=== PATIENT | male | born 1945 | race Caucasian/White ===

== ENCOUNTER 2017-12-07 15:50 | Inpatient (IN) | payer OTHER ==
[~2017-12-07 15:50] MED LIST: ETOMIDATE 20 MG INJ; SUCCINYLCHOLINE CHLORIDE 100 MG/5 ML SYG IV
[2017-12-07] MEDS: CEFEPIME 2GM/50 ML (PMX) 50 ML IVPB ×2 (16:41→17:00)
[2017-12-07] MEDS: ACETAMINOPHEN 650 MG SUPP PR (16:41)
[2017-12-07 16:49] LABS: ABNORMAL IP MESSAGE 1; HEMATOCRIT 59.6 % (42.0-52.0); MEAN CORPUSCULAR HEMOGLOBIN 29.9 pg (29.0-33.0); MEAN CORPUSCULAR HGB CONC 31.9 g/dl (32.0-37.0); MEAN CORPUSCULAR VOLUME 93.9 fl (82.0-101.0); MEAN PLATELET VOLUME 10.6 fl (7.4-10.4); NUCLEATED RED BLOOD CELLS% 0.1 /100WBC (0.0-0.0); PLATELET COUNT 115 10^3/UL (140-415); POSITIVE DIFF @See below; RED BLOOD COUNT 6.35 10^6/ul (4.70-6.10); RED CELL DISTRIBUTION WIDTH 18.9 % (11.5-14.5)
[2017-12-07 16:49] LABS: WHITE BLOOD COUNT 25.4 10^3/ul (4.8-10.8)
[2017-12-07 16:58] LABS: ADD MAN DIFF? YES
[2017-12-07] MEDS: SODIUM CHLORIDE 0.9% 1L BAG IV* (17:00)
[2017-12-07 17:06] LABS: ALANINE AMINOTRANSFERASE 83 IU/L (13-69); ALBUMIN 4.1 g/dl (3.3-4.9); ALKALINE PHOSPHATASE 123 IU/L (42-121); ANION GAP 20 (8-16); ASPARTATE AMINO TRANSFERASE 134 IU/L (15-46); BILIRUBIN,INDIRECT 0.7 mg/dl (0-1.1); BILIRUBIN,TOTAL 0.7 mg/dl (0.2-1.3); CALCIUM 9.2 mg/dl (8.4-10.2); CARBON DIOXIDE 22 mmol/L (21-31); CHLORIDE 123 mmol/L (97-110); CREATININE 5.92 mg/dl (0.61-1.24); GLUCOSE 213 mg/dl (70-220); POTASSIUM 4.7 mmol/L (3.5-5.1); SODIUM 160 mmol/L (135-144); TOTAL PROTEIN 8.2 g/dl (6.1-8.1)
[2017-12-07 17:08] LABS: LACTIC ACID 5.3 mmol/L (0.5-2.0)
[2017-12-07 17:10] LABS: INR 1.47; PARTIAL THROMBOPLASTIN TIME 39.5 Sec (25.0-35.0); PROTIME 18.1 Sec (11.9-14.9); PT RATIO 1.4
[2017-12-07] MEDS: HYDROmorphONE 1 MG/ML SYG IV (17:13)
[2017-12-07] MEDS ORDERED: PROPOFOL 100 ML (17:13)
[2017-12-07 17:14] LABS: BLOOD UREA NITROGEN 115 mg/dl (7-20)
[2017-12-07 17:17] LABS: TROPONIN-I 0.069 ng/ml (0.000-0.120)
[2017-12-07] MEDS: SUCCINYLCHOLINE CHLORIDE 100 MG/5 ML SYG IV (17:30)
[2017-12-07] MEDS: ETOMIDATE 20 MG INJ IV (17:30)
[2017-12-07] MEDS: VANCOMYCIN 1 GM (PMX) 250 ML IVPB (17:31)
[2017-12-07] MEDS: IPRATROPIUM (NEB) 0.5 MG/2.5 ML AMP HHN (17:34)
[2017-12-07] MEDS: LEVALBUTEROL (NEB) 1.25 MG/0.5 ML AMP HHN (17:34)
[2017-12-07 17:48] LABS: BAND NEUTROPHILS % (M) 4 % (0-4); LYMPHOCYTES #M 2.5 10^3/ul (0.8-2.9); LYMPHOCYTES % (M) 10 % (15-51); MONOCYTE #M 2.5 10^3/ul (0.3-0.9); MONOCYTES % (M) 10 % (0-11); MYELOCYTES #M 0.2 10^3/ul (0.0-0.0); MYELOCYTES % (M) 1 % (0-0); PLATELET ESTIMATE DECREASED; SEG NEUT #M 19.3 10^3/ul (1.6-7.5); SEGMENTED NEUTROPHILS (M) % 75 % (39-77); SMUDGE%M 4 % (0-0)
[2017-12-07 18:12] LABS: AADO2 Arterial 594.3 mmHg (7.0-24.0); Allen Test ACCEPTAB; Arterial Base Excess -11.1 mmol/L (-3.0-3); Arterial Blood Gas Oxygen Sat 92.2 mmHG (95.0-98.0); Arterial COHb 0.5 % (0.0-3.0); Arterial Fraction of Oxyhgb 91.6 % (93.0-99.0); Arterial HCO3 15.8 mmol/L (22.0-26.0); Arterial MetHb 0.1 % (0.0-1.5); Arterial Total Hemglobin 15.6 g/dl (12.0-18.0); Arterial pCO2 39.2 mmhg (35-45); MODE VENT - AC; Site Right Radial
[2017-12-07] MEDS ORDERED: DOCUSATE SODIUM 100 MG CAP PO (18:30)
[2017-12-07] MEDS ORDERED: ACETAMINOPHEN 325 MG TAB PO (18:30)
[2017-12-07] MEDS ORDERED: HYDROCODONE/APAP (5/325) TAB PO (18:30)
[2017-12-07] MEDS ORDERED: hydrALAzine 20 MG INJ IV (18:30)
[2017-12-07] MEDS ORDERED: ONDANSETRON 4 MG INJ IV (18:30)
[2017-12-07] MEDS ORDERED: ALBUTEROL/IPRATROPIUM (NEB) 3 ML AMP HHN (18:30)
[2017-12-07] MEDS ORDERED: NACL 0.9% 3 ML SYG IV (18:30)
[2017-12-07] MEDS ORDERED: VANCOMYCIN IV PER PHARMACY XX (18:30)
[2017-12-07] MEDS ORDERED: NITROGLYCERIN (SL) 0.4 MG TAB SL (18:30)
[2017-12-07] MEDS: SOD CHLORIDE 0.45% 1,000 ML IV (18:30)
[2017-12-07] MEDS ORDERED: morphine 2 MG INJ IV (18:30)
[2017-12-07] MEDS ORDERED: MAGNESIUM HYDROXIDE 30ML CUP PO (18:30)
[2017-12-07] MEDS ORDERED: NA PHOSPHATE/BIPHOS 133 ML ENEMA PR (18:30)
[2017-12-07] MEDS ORDERED: NORepinephrine 8MG/250 ML (PMX 250 ML IV (18:51)
[2017-12-07] MEDS: PROPOFOL 100 ML IV ×2 (18:56→23:25)
[2017-12-07 19:12] LABS: LACTIC ACID 5.4 mmol/L (0.5-2.0)
[2017-12-07 19:24] LABS: FREE T4 (FREE THYROXINE) 1.11 ng/dl (0.78-2.44)
[2017-12-07] MEDS: DEXTROSE 5% 1,000 ML IV (19:27)
[2017-12-07 20:00] LABS: OSMOLALITY 379 mOsm/kg (280-295)
[2017-12-07 20:09] LABS: ADD UMIC YES; UR AMORPHOUS CRYSTAL FEW /HPF (NONE SEEN); UR ASCORBIC ACID NEGATIVE (NEGATIVE); UR BACTERIA MODERATE /HPF (NONE SEEN); UR BILIRUBIN (Dip) NEGATIVE (NEGATIVE); UR BLOOD (Dip) 3+ mg/dL (NEGATIVE); UR CLARITY CLOUDY (CLEAR); UR COLOR AMBER (YELLOW); UR GLUCOSE (Dip) NEGATIVE (NEGATIVE); UR KETONES (Dip) NEGATIVE (NEGATIVE); UR LEUKOCYTE ESTERASE (Dip) 1+ Leu/ul (NEGATIVE); UR MUCUS MANY /HPF (NONE SEEN); UR NITRITE (Dip) NEGATIVE (NEGATIVE); UR RBC > 182 /HPF (0-5); UR SPECIFIC GRAVITY (Dip) 1.017 (1.003-1.030); UR TOTAL PROTEIN (Dip) 2+ mg/dl (NEGATIVE); UR UROBILINOGEN (Dip) NEGATIVE (NEGATIVE); UR WBC 63 /HPF (0-5)
[2017-12-07 20:18] LABS: HEMOGLOBIN A1C 6.2 % (0-5.9)
[2017-12-07 20:22] LABS: CREATININE,URINE RANDOM 293.03 mg/dl (20-370)
[2017-12-07 20:22] LABS: SODIUM,URINE RANDOM 17 mmol/L (30-90)
[2017-12-07 20:30] LABS: OSMOLALITY,URINE 450 mOsm/kg (250-1200)
[2017-12-07 20:34] LABS: CREATININE,URINE RANDOM 296.24 mg/dl (20-370); PROTEIN/CREAT RATIO 0.64 RATIO
[2017-12-07 20:57] LABS: LACTIC ACID 2.8 mmol/L (0.5-2.0)
[2017-12-07] MEDS: VANCOMYCIN 750 MG in SOD CHLORIDE 0.9% 150 ML IVPB (21:05)
[2017-12-07 23:21] LABS: LACTIC ACID 2.8 mmol/L (0.5-2.0)
[2017-12-08 03:02] LABS: LACTIC ACID 2.8 mmol/L (0.5-2.0)
[2017-12-08] MEDS: SOD CHLORIDE 0.45% 1,000 ML IV (03:15)
[2017-12-08] MEDS: DEXTROSE 5% 1,000 ML IV (03:30)
[2017-12-08] MEDS: ACETAMINOPHEN 650 MG SUPP PR (03:39)
[2017-12-08] MEDS: PROPOFOL 100 ML IV (04:00)
[2017-12-08 05:50] LABS: WHITE BLOOD COUNT 15.4 10^3/ul (4.8-10.8)
[2017-12-08 05:50] LABS: ABNORMAL IP MESSAGE 1; HEMATOCRIT 48.8 % (42.0-52.0); HEMOGLOBIN 15.2 g/dl (14.0-18.0); MEAN CORPUSCULAR HGB CONC 31.1 g/dl (32.0-37.0); MEAN CORPUSCULAR VOLUME 96.4 fl (82.0-101.0); MEAN PLATELET VOLUME 11.3 fl (7.4-10.4); NUCLEATED RED BLOOD CELLS% 0.1 /100WBC (0.0-0.0); PLATELET COUNT 75 10^3/UL (140-415); POSITIVE DIFF @See below; RED BLOOD COUNT 5.06 10^6/ul (4.70-6.10); RED CELL DISTRIBUTION WIDTH 17.9 % (11.5-14.5)
[2017-12-08 06:09] LABS: AADO2 Arterial 519.4 mmHg (7.0-24.0); Arterial Base Excess -9.5 mmol/L (-3.0-3); Arterial Blood Gas Oxygen Sat 98.4 mmHG (95.0-98.0); Arterial COHb 0.3 % (0.0-3.0); Arterial Fraction of Oxyhgb 97.9 % (93.0-99.0); Arterial HCO3 16.4 mmol/L (22.0-26.0); Arterial MetHb 0.2 % (0.0-1.5); Arterial Total Hemglobin 15.6 g/dl (12.0-18.0); Arterial pCO2 36.3 mmhg (35-45); Blood Gas Mean Airway Pressure 12; MODE VENT - AC; Site LB
[2017-12-08 06:20] LABS: CHOLESTEROL 98 mg/dl (100-200)
[2017-12-08 06:20] LABS: CHOL/HDL RATIO 6.5 RATIO; HDL CHOLESTEROL 15 mg/dl (31-75); LDL CHOLESTEROL,CALCULATED 42 mg/dl; TRIGLYCERIDES 204 mg/dl (0-149)
[2017-12-08 06:40] LABS: THYROID STIMULATING HORMONE 0.407 MIU/L (0.465-4.680)
[2017-12-08 06:47] LABS: ADD MAN DIFF? YES
[2017-12-08 07:01] LABS: MAGNESIUM 2.9 mg/dl (1.7-2.5)
[2017-12-08 07:01] LABS: LACTIC ACID 2.6 mmol/L (0.5-2.0)
[2017-12-08] MEDS: PANTOPRAZOLE 40 MG INJ IV (07:26)
[2017-12-08 07:34] LABS: ALANINE AMINOTRANSFERASE 111 IU/L (13-69); ALBUMIN 2.8 g/dl (3.3-4.9); ALBUMIN/GLOBULIN RATIO 0.93; ALKALINE PHOSPHATASE 82 IU/L (42-121); ANION GAP 14 (8-16); ASPARTATE AMINO TRANSFERASE 214 IU/L (15-46); BILIRUBIN,INDIRECT 0.1 mg/dl (0-1.1); BILIRUBIN,TOTAL 0.1 mg/dl (0.2-1.3); CALCIUM 7.5 mg/dl (8.4-10.2); CARBON DIOXIDE 19 mmol/L (21-31); CHLORIDE 127 mmol/L (97-110); CREATININE 6.35 mg/dl (0.61-1.24); GLUCOSE 235 mg/dl (70-220); POTASSIUM 4.9 mmol/L (3.5-5.1); SODIUM 155 mmol/L (135-144); TOTAL PROTEIN 5.8 g/dl (6.1-8.1)
[2017-12-08 07:44] LABS: BLOOD UREA NITROGEN 134 mg/dl (7-20)
[2017-12-08 08:01] LABS: ANISOCYTOSIS 2+ (0-0); BAND NEUTROPHILS #M 5.8 10^3/ul (0.0-0.6); BAND NEUTROPHILS % (M) 38 % (0-4); LYMPHOCYTES % (M) 20 % (15-51); METAMYELOCYTES #M 0.1 10^3/ul (0.0-0.0); METAMYELOCYTES %M 1 % (0-0); MICROCYTOSIS 1+ (0-0); MONOCYTE #M 0.7 10^3/ul (0.3-0.9); MONOCYTES % (M) 5 % (0-11); PLATELET ESTIMATE DECREASED; POIKILOCYTOSIS 3+ (0-0); POLYCHROMASIA 3+ (0-0); RBC MORPHOLOGY COMMENT @See below; REACTIVE LYMPHOCYTES #M 0.3 10^3/ul (0.0-0.0); REACTIVE LYMPHOCYTES% (M) 2 % (0-0); SEG NEUT #M 6.1 10^3/ul (1.6-7.5); SEGMENTED NEUTROPHILS (M) % 34 % (39-77); SMUDGE%M 30 % (0-0); WBC MORPHOLOGY COMMENT @See below
[2017-12-08 09:15] LABS: HEMOGLOBIN A1C 5.8 % (0-5.9)
[2017-12-08 11:16] LABS: LACTIC ACID 2.7 mmol/L (0.5-2.0)
[2017-12-08] MEDS: SODIUM BICARBONATE (IV ADD) 150 MEQ in DEXTROSE 5% 850 ML IV (13:14)
[2017-12-08] MEDS: CLINDAMYCIN 600 MG/D5W (PMX) 50 ML IVPB ×2 (14:10→22:50)
[2017-12-08 14:26] LABS: LACTIC ACID 2.3 mmol/L (0.5-2.0)
[2017-12-08] MEDS ORDERED: D5W-0.45 NACL + KCL 10 MEQ 1,000 ML IV (17:30)
[2017-12-08] MEDS: CEFEPIME 2GM/50 ML (PMX) 50 ML IVPB (18:05)
[2017-12-08] MEDS: POTASSIUM CHLORIDE 10 MEQ in DEXTROSE 5%-0.225% NACL 1,000 ML IV (18:29)
[2017-12-08] MEDS: DEXTROSE 5%-0.225% NACL 1,000 ML IV (21:56)
[2017-12-08] MEDS ORDERED: DEXTROSE 50% 50 ML SYRINGE IV ×2 (22:00)
[2017-12-08] MEDS ORDERED: GLUCOSE GEL 15 GRAM TUBE PO ×2 (22:00)
[2017-12-08] MEDS ORDERED: GLUCAGON 1 MG INJ IM (22:00)
[2017-12-08] MEDS ORDERED: GLUCOSE GEL 15 GRAM TUBE BUCCAL (22:00)
[2017-12-09] MEDS: INSULIN ASPART [NOVOLOG] 3 ML PEN SC ×6 (00:34→20:55)
[2017-12-09] MEDS: PROPOFOL 100 ML IV ×3 (00:36→19:56)
[2017-12-09 05:28] LABS: ADD MAN DIFF? NO
[2017-12-09 05:37] LABS: WHITE BLOOD COUNT 17.9 10^3/ul (4.8-10.8)
[2017-12-09 05:37] LABS: ABNORMAL IP MESSAGE 1; BASOPHILS % 0.2 % (0.0-2.0); EOSINOPHILS % 0.1 % (0.0-7.0); HEMATOCRIT 39.7 % (42.0-52.0); HEMOGLOBIN 12.7 g/dl (14.0-18.0); LYMPHOCYTES # 1.1 10^3/ul (0.8-2.9); LYMPHOCYTES % 6.4 % (15.0-51.0); MEAN CORPUSCULAR VOLUME 93.6 fl (82.0-101.0); MEAN PLATELET VOLUME 11.4 fl (7.4-10.4); MONOCYTE # 1.1 10^3/ul (0.3-0.9); NEUTROPHIL # 15.5 10^3/ul (1.6-7.5); NEUTROPHILS % 86.6 % (39.0-77.0); PLATELET COUNT 66 10^3/UL (140-415); POSITIVE DIFF @See below; RED BLOOD COUNT 4.24 10^6/ul (4.70-6.10); RED CELL DISTRIBUTION WIDTH 17.9 % (11.5-14.5)
[2017-12-09] MEDS: DEXTROSE 5%-0.225% NACL 1,000 ML IV ×3 (05:47→21:45)
[2017-12-09] MEDS: PANTOPRAZOLE 40 MG INJ IV (05:50)
[2017-12-09] MEDS: CLINDAMYCIN 600 MG/D5W (PMX) 50 ML IVPB ×3 (05:50→21:45)
[2017-12-09 06:03] LABS: LACTIC ACID 1.9 mmol/L (0.5-2.0)
[2017-12-09 06:08] LABS: ANION GAP 15 (8-16); CALCIUM 7.2 mg/dl (8.4-10.2); CARBON DIOXIDE 19 mmol/L (21-31); CHLORIDE 118 mmol/L (97-110); CREATININE 6.29 mg/dl (0.61-1.24); GLUCOSE 210 mg/dl (70-220); POTASSIUM 4.2 mmol/L (3.5-5.1); SODIUM 148 mmol/L (135-144)
[2017-12-09 06:10] LABS: MAGNESIUM 2.5 mg/dl (1.7-2.5)
[2017-12-09 06:10] LABS: PHOSPHORUS 6.5 mg/dl (2.5-4.9)
[2017-12-09 06:59] LABS: BLOOD UREA NITROGEN 141 mg/dl (7-20)
[2017-12-09 07:27] LABS: ANISOCYTOSIS 2+ (0-0); BAND NEUTROPHILS #M 3.9 10^3/ul (0.0-0.6); BAND NEUTROPHILS % (M) 22 % (0-4); BURR CELLS 3+ (0-0); LYMPHOCYTES #M 1.4 10^3/ul (0.8-2.9); LYMPHOCYTES % (M) 8 % (15-51); MICROCYTOSIS 1+ (0-0); MONOCYTE #M 1.4 10^3/ul (0.3-0.9); MONOCYTES % (M) 8 % (0-11); PLATELET ESTIMATE SIG DECREASED; POIKILOCYTOSIS 3+ (0-0); POLYCHROMASIA 2+ (0-0); REACTIVE LYMPHOCYTES #M 0.1 10^3/ul (0.0-0.0); REACTIVE LYMPHOCYTES% (M) 1 % (0-0); SEG NEUT #M 11.6 10^3/ul (1.6-7.5); SEGMENTED NEUTROPHILS (M) % 61 % (39-77); SMUDGE%M 4 % (0-0)
[2017-12-09 08:29] LABS: AADO2 Arterial 171.6 mmHg (7.0-24.0); Allen Test ACCEPTAB; Arterial Base Excess -7.1 mmol/L (-3.0-3); Arterial Blood Gas Oxygen Sat 93.6 mmHG (95.0-98.0); Arterial COHb 0.9 % (0.0-3.0); Arterial Fraction of Oxyhgb 92.7 % (93.0-99.0); Arterial HCO3 17.9 mmol/L (22.0-26.0); Arterial MetHb 0.1 % (0.0-1.5); Arterial Total Hemglobin 13.4 g/dl (12.0-18.0); Arterial pCO2 34.5 mmhg (35-45); MODE VENT - AC; Site Right Radial
[2017-12-09] MEDS: NA BICARBONATE 650 MG TAB PO ×2 (12:36→20:44)
[2017-12-09] MEDS: CALCIUM ACETATE 667 MG CAP PO ×2 (12:36→17:02)
[2017-12-09] MEDS: HALOPERIDOL 5 MG INJ IV (13:29)
[2017-12-09 14:54] LABS: ANION GAP 17 (8-16); CALCIUM 7.3 mg/dl (8.4-10.2); CARBON DIOXIDE 20 mmol/L (21-31); CHLORIDE 114 mmol/L (97-110); CREATININE 6.78 mg/dl (0.61-1.24); GLUCOSE 203 mg/dl (70-220); POTASSIUM 3.7 mmol/L (3.5-5.1); SODIUM 147 mmol/L (135-144)
[2017-12-09 15:08] LABS: BLOOD UREA NITROGEN 133 mg/dl (7-20)
[2017-12-09] MEDS: FENTAnyl (DRIP) 1000 mcg/100mL 100 ML IV (15:51)
[2017-12-09] MEDS: CEFEPIME 2GM/50 ML (PMX) 50 ML IVPB (16:01)
[2017-12-09] MEDS: INSULIN GLARGINE [LANTus] (100 UNITS/ML) SYG SC (20:55)
[2017-12-10] MEDS: LORAZEPAM 2 MG INJ IV (01:27)
[2017-12-10] MEDS: INSULIN ASPART [NOVOLOG] 3 ML PEN SC ×6 (01:33→20:22)
[2017-12-10] MEDS: BALSAM PERU/CASTOR OIL 60 GM TUBE TOP ×3 (02:02→20:24)
[2017-12-10] MEDS: COLLAGENASE 5 GM (UD JAR) TOP ×2 (02:02→09:00)
[2017-12-10 04:56] LABS: ADD MAN DIFF? NO
[2017-12-10 04:57] LABS: WHITE BLOOD COUNT 15.1 10^3/ul (4.8-10.8)
[2017-12-10 04:57] LABS: ABNORMAL IP MESSAGE 1; BASOPHILS % 0.1 % (0.0-2.0); EOSINOPHILS # 0.1 10^3/ul (0.0-0.5); EOSINOPHILS % 0.4 % (0.0-7.0); HEMOGLOBIN 10.7 g/dl (14.0-18.0); LYMPHOCYTES # 0.9 10^3/ul (0.8-2.9); LYMPHOCYTES % 5.7 % (15.0-51.0); MEAN CORPUSCULAR HEMOGLOBIN 29.5 pg (29.0-33.0); MEAN CORPUSCULAR HGB CONC 32.4 g/dl (32.0-37.0); MEAN CORPUSCULAR VOLUME 90.9 fl (82.0-101.0); MEAN PLATELET VOLUME 11.4 fl (7.4-10.4); MONOCYTE # 0.8 10^3/ul (0.3-0.9); MONOCYTES % 5.2 % (0.0-11.0); NEUTROPHIL # 13.2 10^3/ul (1.6-7.5); NEUTROPHILS % 87.1 % (39.0-77.0); PLATELET COUNT 58 10^3/UL (140-415); POSITIVE DIFF @See below; RED BLOOD COUNT 3.63 10^6/ul (4.70-6.10); RED CELL DISTRIBUTION WIDTH 17.6 % (11.5-14.5)
[2017-12-10 05:21] LABS: ANION GAP 16 (8-16); CALCIUM 7.5 mg/dl (8.4-10.2); CARBON DIOXIDE 18 mmol/L (21-31); CHLORIDE 113 mmol/L (97-110); CREATININE 6.21 mg/dl (0.61-1.24); GLUCOSE 193 mg/dl (70-220); POTASSIUM 3.4 mmol/L (3.5-5.1); SODIUM 144 mmol/L (135-144)
[2017-12-10 05:32] LABS: BLOOD UREA NITROGEN 134 mg/dl (7-20)
[2017-12-10] MEDS: DEXTROSE 5%-0.225% NACL 1,000 ML IV ×3 (05:57→21:04)
[2017-12-10] MEDS: CLINDAMYCIN 600 MG/D5W (PMX) 50 ML IVPB ×3 (05:57→21:07)
[2017-12-10] MEDS: PANTOPRAZOLE 40 MG INJ IV (05:57)
[2017-12-10] MEDS: NA BICARBONATE 650 MG TAB PO ×3 (09:02→17:52)
[2017-12-10] MEDS: CALCIUM ACETATE 667 MG CAP PO ×3 (09:02→17:52)
[2017-12-10] MEDS: POTASSIUM CHLORIDE 100 ML IVPB (09:03)
[2017-12-10] MEDS ORDERED: POTASSIUM CHLORIDE 20 MEQ POWDER FOR ORAL SOLN NGT (09:30)
[2017-12-10] MEDS: PROPOFOL 100 ML IV ×2 (12:26→21:04)
[2017-12-10 13:59] LABS: AADO2 Arterial 176.3 mmHg (7.0-24.0); Allen Test ACCEPTAB; Arterial Base Excess -5.4 mmol/L (-3.0-3); Arterial Blood Gas Oxygen Sat 92.9 mmHG (95.0-98.0); Arterial COHb 0.1 % (0.0-3.0); Arterial Fraction of Oxyhgb 92.7 % (93.0-99.0); Arterial MetHb 0.1 % (0.0-1.5); Arterial Total Hemglobin 11.7 g/dl (12.0-18.0); Arterial pCO2 33.4 mmhg (35-45); MODE VENT - AC; Site Right Radial
[2017-12-10] MEDS: MUPIROCIN 2% 22 GM OINT TOP ×2 (14:27→20:23)
[2017-12-10 14:30] LABS: ANION GAP 13 (8-16); CALCIUM 7.3 mg/dl (8.4-10.2); CARBON DIOXIDE 20 mmol/L (21-31); CHLORIDE 110 mmol/L (97-110); CREATININE 5.79 mg/dl (0.61-1.24); GLUCOSE 281 mg/dl (70-220); MAGNESIUM 2.3 mg/dl (1.7-2.5); PHOSPHORUS 5.1 mg/dl (2.5-4.9); POTASSIUM 3.4 mmol/L (3.5-5.1); SODIUM 140 mmol/L (135-144)
[2017-12-10 14:42] LABS: BLOOD UREA NITROGEN 127 mg/dl (7-20)
[2017-12-10] MEDS: CEFEPIME 2GM/50 ML (PMX) 50 ML IVPB (17:51)
[2017-12-10] MEDS: FENTAnyl (DRIP) 1000 mcg/100mL 100 ML IV (18:30)
[2017-12-10] MEDS: INSULIN GLARGINE [LANTus] (100 UNITS/ML) SYG SC (20:35)
== END 2017-12-10 22:55 | disposition short-term general hospital (02) | DRG 871 ==
LOC: E/R 15:50 → ICU 12-09 11:20
PROC: 0BH17EZ Insertion of Endotracheal Airway into Trachea, Via Natural or Artificial Opening (ICD-10-PCS; principal; 2017-12-07)
PROC: 5A1945Z Respiratory Ventilation, 24-96 Consecutive Hours (ICD-10-PCS; 2017-12-07)
PROC: 4A133R1 Monitoring of Arterial Saturation, Peripheral, Percutaneous Approach (ICD-10-PCS; 2017-12-07)
DX: A41.9 Sepsis, unspecified organism (principal); R65.21 Severe sepsis with septic shock; N17.0 Acute kidney failure with tubular necrosis; J96.00 Acute respiratory failure, unspecified whether with hypoxia or hypercapnia; J69.0 Pneumonitis due to inhalation of food and vomit; K72.00 Acute and subacute hepatic failure without coma; E87.0 Hyperosmolality and hypernatremia; N39.0 Urinary tract infection, site not specified; E87.2 Acidosis; E11.22 Type 2 diabetes mellitus with diabetic chronic kidney disease; I12.9 Hypertensive chronic kidney disease with stage 1 through stage 4 chronic kidney disease, or unspecified chronic kidney disease; N18.9 Chronic kidney disease, unspecified; L89.150 Pressure ulcer of sacral region, unstageable; E86.0 Dehydration; D69.6 Thrombocytopenia, unspecified; D64.9 Anemia, unspecified; E83.39 Other disorders of phosphorus metabolism; F01.50 Vascular dementia, unspecified severity, without behavioral disturbance, psychotic disturbance, mood disturbance, and anxiety; Z86.73 Personal history of transient ischemic attack (TIA), and cerebral infarction without residual deficits
CPT/HCPCS: 31500; 36415; 36600; 71045; 76775; 76937; 80048; 80053; 80061; 81001; 81003; 82570; 82803; 82962; 83036; 83605; 83735; 83930; 83935; 84100; 84155; 84300; 84439; 84443; 84484; 85025; 85610; 85730; 87040; 87081; 87086; 93005; 93306; 94002; 94003; 94640; 94664; 94770; 96365; 96375; 99291-25